=== PATIENT | female | born 1970 | race Caucasian/White ===

== ENCOUNTER 2017-12-14 18:51 | Emergency (ER) | payer BC, OTHER ==
--- NOTE | 2017-12-14 21:14 | RAD REPORT ---
EXAM DESCRIPTION: US - Transvaginal Study Probe - 12/14/2017 9:01 pm CLINICAL HISTORY: Pelvic pain. COMPARISON: None. FINDINGS: The uterus is normal in size, shape and echotexture. The uterus measures 7.9 x 5.2 x 4.2 c m. The endometrial stripe measures 4 mm, normal. Both ovaries are normal in size, shape and echotexture. The right ovary measures 3.5 x 2.5 cm. The left ovary measures 2.1 x 2.1 cm.. No ovarian or parovarian lesions. No adnexal masses. Normal Doppler blood flow was demonstrated to both ovaries. IMPRESSION: Unremarkable study.
--- NOTE | 2017-12-14 21:40 | EDPHYS ---
Physician Documentation [facility] Name: Jasmina Gama Age: 47 yrs Sex: Female : 1970 Arrival Date: 12/14/2017 Time: 19:03 Bed 14 Private MD: Bj Cole HPI: 12/14 21:36 This 47 yrs old Female presents to ER via Ambulatory with complaints of kb Abdominal Pain. 21:36 The patient presents with abdominal pain in the lower abdomen. Onset: The kb symptoms/episode began/occurred today. The symptoms do not radiate. Associated signs and symptoms: Pertinent positives: vaginal bleeding, Pertinent negatives: nausea, vomiting, and diarrhea. The symptoms are described as achy. Modifying factors: The symptoms are alleviated by nothing, the symptoms are aggravated by nothing. Severity of pain: At its worst the pain was moderate in the emergency department the pain is unchanged. The patient has not experienced similar symptoms in the past. The patient has not recently seen a physician. Pt states she has a history of endometriosis and has been having pain with her menstrual cycles for the past 5 months. States it started up again today so she came to get seen because she is tired of self treating. . 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 - Social history:: Smoking status: Patient uses tobacco products, smokes one pack cigarettes per day. ROS: 21:35 Constitutional: Negative for fever, chills, and weight loss, Cardiovascular: Negative kb for chest pain, palpitations, and edema, Respiratory: Negative for shortness of breath, cough, wheezing, and pleuritic chest pain, Back: Negative for injury and pain, MS/Extremity: Negative for injury and deformity, Skin: Negative for injury, rash, and discoloration, Neuro: Negative for headache, weakness, numbness, tingling, and seizure. 21:35 Abdomen/GI: Positive for abdominal pain. Exam: 21:35 Constitutional: This is a well developed, well nourished patient who is awake, alert, kb and in no acute distress. Head/Face: Normocephalic, atraumatic. Chest/axilla: Normal chest wall appearance and motion. Nontender with no deformity. No lesions are appreciated. Cardiovascular: Regular rate and rhythm with a normal S1 and S2. No gallops, murmurs, or rubs. Normal PMI, no JVD. No pulse deficits. Respiratory: Lungs have equal breath sounds bilaterally, clear to auscultation and percussion. No rales, rhonchi or wheezes noted. No increased work of breathing, no retractions or nasal flaring. Abdomen/GI: Soft, non-tender, with normal bowel sounds. No distension or tympany. No guarding or rebound. No evidence of tenderness throughout. Skin: Warm, dry with normal turgor. Normal color with no rashes, no lesions, and no evidence of cellulitis. MS/ Extremity: Pulses equal, no cyanosis. Neurovascular intact. Full, normal range of motion. Neuro: Awake and alert, GCS 15, oriented to person, place, time, and situation. Cranial nerves II-XII grossly intact. Motor strength 5/5 in all extremities. Sensory grossly intact. Cerebellar exam normal. Normal gait. Vital Signs: 19:09 BP 134 / 84; Pulse 100; Resp 17; Temp 98.8; Pulse Ox 98% on R/A; Weight 58.06 kg; aj Height 5 ft. 2 in. (157.48 cm); Pain 6/10; 21:00 BP 112 / 70; Pulse 69; Resp 17; Temp 98(O); Pulse Ox 100% on R/A; bs1 21:38 BP 101 / 67; Pulse 63; Pulse Ox 98% on R/A; bs1 19:09 Body Mass Index 23.41 (58.06 kg, 157.48 cm) aj MDM: 20:01 Patient medically screened. kb 21:36 Data reviewed: vital signs, nurses notes. Data interpreted: Pulse oximetry: on room air kb is 98 %. Interpretation: normal. Counseling: I had a detailed discussion with the patient and/or guardian regarding: the historical points, exam findings, and any diagnostic results supporting the discharge/admit diagnosis, lab results, radiology results, the need for outpatient follow up, an OB/Gyne specialist, to return to the emergency department if symptoms worsen or persist or if there are any questions or concerns that arise at home. 21:38 ED course: Educated on need for follow up with TELECOMMUNICATIONS PROFESSIONAL. Verbal understanding received. . kb 21:47 ED course: Pt asked about UTI symptoms. Pt denies any urinary symptoms. . kb 12/14 21:20 Order name: Urine Microscopic Only; Complete Time: 22:01 kb 12/14 21:42 Order name: Urine Dipstick--Ancillary (enter results); Complete Time: 21:47 em1 12/14 20:06 Order name: Urine Dipstick-Ancillary (obtain specimen); Complete Time: 21:34 kb 12/14 20:12 Order name: US Transvaginal Study (Probe); Complete Time: 21:15 kb 12/14 21:42 Order name: Urine --Ancillary (enter results); Complete Time: 21:47 em1 12/14 22:02 Order name: Urine Culture EDAZ 12/14 20:12 Order name: Urine Test (obtain specimen); Complete Time: 21:28 kb Administered Medications: No medications were administered Disposition: 12/15 06:42 Co-signature as Attending Physician, Bj Nickerson MD I agree with the assessment and eduar plan of care. Disposition: 12/14/17 21:39 Discharged to Home. Impression: Dysmenorrhea, unspecified. - Condition is Stable. - Discharge Instructions: Dysmenorrhea, [id number]. - Medication Reconciliation Form, Thank You Letter, Antibiotic Education, Prescription Opioid Use form. - Follow up: Emergency Department; When: As needed; Reason: Worsening of condition. Follow up: Private Physician; When: 2 - 3 days; Reason: Recheck today's complaints, Continuance of care, Re-evaluation by your physician. Signatures: Dispatcher [employer] [facility] Cynthia Lowery, ELECTRONIC COMMUNICATIONS TECHNICIAN-C ELECTRONIC COMMUNICATIONS TECHNICIAN-Araceli Mcdonough RN RN aj Anderson, Corey, MD MD cha Ortiz, Alex RN RN ao Corrections: (The following items were deleted from the chart) 12/14 22:27 21:39 12/14/2017 21:39 Discharged to Home. Impression: Dysmenorrhea, unspecified. ao Condition is Stable. Forms are Medication Reconciliation Form, Thank You Letter, Antibiotic Education, Prescription Opioid Use. Follow up: Emergency Department; When: As needed; Reason: Worsening of condition. Follow up: Private Physician; When: 2 - 3 days; Reason: Recheck today's complaints, Continuance of care, Re-evaluation by your physician. kb
--- NOTE | 2017-12-14 21:40 | ER ---
Nurse's Notes [facility] Name: Jasmina Gama Age: 47 yrs Sex: Female : 1970 Arrival Date: 12/14/2017 Time: 19:03 Bed 14 Private MD: Diagnosis: Dysmenorrhea, unspecified Presentation: 12/14 19:08 Presenting complaint: Patient states: Reports lower abdominal pain and lower back pain aj with periods for 5 months. HX of endometriosis. Transition of care: patient was not received from another setting of care. Onset of symptoms was May 2017. Initial Sepsis Screen: Does the patient meet any 2 criteria? No. Patient's initial sepsis screen is negative. Does the patient have a suspected source of infection? No. Patient's initial sepsis screen is negative. Care prior to arrival: None. 19:08 Method Of Arrival: Ambulatory aj 19:08 Acuity: DALIA 3 aj Triage Assessment: 19:09 General: Appears in no apparent distress. comfortable, Behavior is calm, cooperative, aj appropriate for age. Pain: Complains of pain in buttocks and pelvis Pain currently is 6 out of 10 on a pain scale. at worst was 10 out of 10 on a pain scale. Neuro: Level of Consciousness is awake, alert, obeys commands, Oriented to person, place, time, situation, Appropriate for age. Respiratory: Airway is patent Respiratory effort is even, unlabored, Respiratory pattern is regular, symmetrical. GI: Abdomen is flat, non-distended. : Reports pain lower quadrant(s) in lower back. Derm: Skin is intact, is healthy with good turgor, Skin is pink, warm \T\ dry. normal. 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 - Social history:: Smoking status: Patient uses tobacco products, smokes one pack cigarettes per day. Screenin:36 Abuse screen: Denies threats or abuse. Denies injuries from another. Nutritional bs1 screening: No deficits noted. Tuberculosis screening: No symptoms or risk factors identified. Fall Risk None identified. Assessment: 21:00 General: Appears in no apparent distress. uncomfortable, Behavior is calm, cooperative, bs1 appropriate for age. Pain: Complains of pain in pelvis, right lower quad Pain currently is 7 out of 10 on a pain scale. Neuro: Level of Consciousness is awake, alert, obeys commands, Oriented to person, place, time, situation, Appropriate for age Curriculum And Assessment Director are equal bilaterally Moves all extremities. Neuro: Denies blurred vision dizziness, numbness headache. Cardiovascular: Denies chest pain, lightheadedness, palpitations, shortness of breath, Heart tones S1 S2 present Capillary refill < 3 seconds Patient's skin is warm and dry. Respiratory: Airway is patent Trachea midline Respiratory effort is even, unlabored, Respiratory pattern is regular, symmetrical, Breath sounds are clear. Respiratory: GI: Abdomen is flat, Bowel sounds present X 4 quads. Abdomen is tender to palpation in right lower quadrant and pelvis Reports lower abdominal pain, nausea, Patient currently denies bloody stool, rectal bleeding. : Reports urinary frequency, vaginal bleeding that is light flow, Denies burning with urination. EENT: No deficits noted. No signs and/or symptoms were reported regarding the EENT system. Derm: Skin is intact, Skin is pink, warm \T\ dry. Musculoskeletal: Circulation, motion, and sensation intact. Capillary refill < 3 seconds, Range of motion: intact in all extremities. 21:37 Reassessment: Patient appears in no apparent distress at this time. Patient and/or bs1 family updated on plan of care and expected duration. Pain level reassessed. Patient is alert, oriented x 3, equal unlabored respirations, skin warm/dry/pink. Vital Signs: 19:09 BP 134 / 84; Pulse 100; Resp 17; Temp 98.8; Pulse Ox 98% on R/A; Weight 58.06 kg; Height 5 ft. 2 in. (157.48 cm); Pain 6/10; 21:00 BP 112 / 70; Pulse 69; Resp 17; Temp 98(O); Pulse Ox 100% on R/A; bs1 21:38 BP 101 / 67; Pulse 63; Pulse Ox 98% on R/A; bs1 19:09 Body Mass Index 23.41 (58.06 kg, 157.48 cm) ED Course: 19:03 Patient arrived in ED. 19:09 Triage completed. aj 19:09 Arm band placed on left wrist. Patient placed in waiting room, Patient notified of wait aj time. 19:10 Cyn[facility] Lower[facility]-C [facility]. kb 19:10 Bj Nickerson MD is Attending Physician. kb 20:49 Patricia Carver, RN is Primary Nurse. bs1 21:00 Patient has correct armband on for positive identification. Bed in low position. Call bs1 light in reach. Side rails up X 1. Pulse ox on. NIBP on. 21:01 Ultrasound completed. Patient tolerated well. cy 21:01 US Transvaginal Study (Probe) In Process Unspecified. EDMS 21:36 No provider procedures requiring assistance completed. bs1 22:27 Patient did not have IV access during this emergency room visit. ao Administered Medications: No medications were administered Outcome: 21:39 Discharge ordered by MD. kb 22:26 Discharged to home ambulatory. ao 22:26 Condition: stable 22:26 Discharge instructions given to patient, Instructed on discharge instructions, follow up and referral plans. Demonstrated understanding of instructions, follow-up care, medications. 22:27 Patient left the ED. ao Addendum: 12/17/2017 18:40 Addendum: Culture Results: Positive urine culture. Patient was not prescribed i w antibiotics at discharge. Report given to RUCHI for further evaluation and then to nutrition specialist for follow up with patient. Phone call Attempt #1 pt did not answer, unable to leave voicemail. Signatures: Dispatcher [employer] [facility] Cynthia Lowery FNP-C FNP-Ckb Hammond, Christina, RN Araceli Bernardo ch, RN RN aj Williams, Irene, Odilon Galicia RN RN Patricia Marie, RN RN bs1 Yifan Kendrick cy
[2017-12-14 21:45] LABS: Urine Blood NEGATIVE (NEG); Urine Glucose NEGATIVE (NEG); Urine Protein 1+ (NEG)
[2017-12-14 22:00] LABS: Urine Bacteria LOADED /HPF (<20); Urine Culture Reflex Order REFLEXED; Urine RBC <5 /HPF (NONE SEEN)
== END 2017-12-14 22:27 | disposition home or self-care (01) ==
LOC: ER 18:51
DX: N94.6 Dysmenorrhea, unspecified (principal)
CPT/HCPCS: 76830; 81003; 81015; 81025; 87077; 87086; 87088; 87186; 99283

== ENCOUNTER 2019-06-17 04:29 | Emergency (ER) | payer BC ==
[2019-06-17 05:25] LABS: Urine Blood TRACE (NEG); Urine Glucose NEGATIVE (NEG); Urine Protein TRACE (NEG); Urine Specific Gravity 1.025 (1.005-1.030); Urine pH 5.5 (5.0-7.0)
[2019-06-17] MEDS ORDERED: CEFTRIAXONE/SWI 1gm 1 GM/10 ML SYR ONE (05:47)
[2019-06-17] MEDS ORDERED: dexAMETHasone 10 MG/ML VIAL ONE (05:47)
[2019-06-17] MEDS ORDERED: NA CHLORIDE 0.9% 1,000 ML ONE (05:47)
[2019-06-17] MEDS ORDERED: AZITHROMYCIN 250 MG TAB ONE (05:47)
[2019-06-17] MEDS ORDERED: IPRATROPIUM BROM 0.5MG/2.5ML ONE (05:47)
[2019-06-17] MEDS ORDERED: ALBUTEROL 2.5 MG/3 ML NEB SOL ONE (05:47)
[2019-06-17 06:05] LABS: Basophils % 0.5 % (0-1.3); Hematocrit 39.1 % (36.0-45.0); Lymphocytes % 9.9 % (15.3-44.8); MPV 8.2 fL (7.6-11.3); RBC Red Blood Cell Count 4.23 M/uL (3.86-4.86)
[2019-06-17 06:18] LABS: Albumin 3.4 g/dL (3.4-5.0); Bilirubin Total 0.3 mg/dL (0.2-1.0); Potassium 3.5 mmol/L (3.5-5.1); Protein, Total 7.7 g/dL (6.4-8.2)
[2019-06-17] MEDS ORDERED: predniSONE 20 MG TAB ONE (06:19)
--- NOTE | 2019-06-17 06:52 | ER ---
Nurse's Notes [facility] Name: Jasmina Gama Age: 48 yrs Sex: Female : 1970 Arrival Date: 06/17/2019 Time: 04:31 Bed 13 Private MD: Diagnosis: Dyspnea;Chronic obstructive pulmonary disease with (acute) exacerbation;Tobacco abuse counseling;Tobacco use;Pneumonia due to other specified bacteria Presentation: 06/17 04:43 Presenting complaint: Patient states: Pt states she quit smoking 1 week ago, developed wh cough now having shortness of breath that started a few days ago. Transition of care: patient was not received from another setting of care. Onset of symptoms was June 17, 2019. Risk Assessment: Do you want to hurt yourself or someone else? Patient reports no desire to harm self or others. Initial Sepsis Screen: Does the patient meet any 2 criteria? HR > 90 bpm. Yes Does the patient have a suspected source of infection? No. Patient's initial sepsis screen is negative. Care prior to arrival: None. 04:43 Method Of Arrival: Ambulatory 04:43 Acuity: DALIA 3 04:43 Acuity: DALIA 3 Triage Assessment: 04:48 Respiratory: Reports shortness of breath Onset: The symptoms/episode began/occurred wh gradually, the patient has mild shortness of breath. 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 - Social history:: Smoking status: Patient/guardian denies using tobacco. - Ebola Screening: : Patient negative for fever greater than or equal to 101.5 degrees Fahrenheit, and additional compatible Ebola Virus Disease symptoms Patient denies exposure to infectious person. - Family history:: pertinent for. Screenin:45 Abuse screen: Denies threats or abuse. Denies injuries from another. Nutritional screening: No deficits noted. Tuberculosis screening: No symptoms or risk factors identified. Fall Risk None identified. Assessment: 04:46 General: Appears in no apparent distress. Behavior is calm, cooperative, appropriate for age. Pain: Denies pain. Neuro: Level of Consciousness is awake, alert, obeys commands, Oriented to person, place, time, situation, Appropriate for age. Cardiovascular: Heart tones S1 S2 Rhythm is regular. Respiratory: Airway is patent Respiratory effort is even, unlabored, Respiratory pattern is regular, symmetrical, Breath sounds with wheezes bilaterally. GI: Abdomen is flat, non-distended. : No signs and/or symptoms were reported regarding the genitourinary system. EENT: No signs and/or symptoms were reported regarding the EENT system. Derm: Skin is intact, is healthy with good turgor, Skin is pink, warm \T\ dry. normal. Musculoskeletal: Circulation, motion, and sensation intact. 05:45 Reassessment: Patient appears in no apparent distress at this time. No changes from previously documented assessment. Patient and/or family updated on plan of care and expected duration. Pain level reassessed. Patient is alert, oriented x 3, equal unlabored respirations, skin warm/dry/pink. 07:14 Reassessment: Patient appears in no apparent distress at this time. No changes from previously documented assessment. Patient and/or family updated on plan of care and expected duration. Pain level reassessed. Patient is alert, oriented x 3, equal unlabored respirations, skin warm/dry/pink. Patient denies pain at this time. Patient states feeling better. Patient states symptoms have improved. Vital Signs: 04:47 BP 118 / 77; Pulse 115; Resp 18; Temp 99.1; Pulse Ox 95% ; Weight 55.79 kg; Height 5 ft. 2 in. (157.48 cm); 05:30 BP 102 / 76; Pulse 115; Resp 18; Temp 98.8; Pulse Ox 95% ; wh 05:30 BP 115 / 76; Pulse 108; Resp 18; Pulse Ox 96% on R/A; wh 04:47 Body Mass Index 22.50 (55.79 kg, 157.48 cm) ED Course: 04:31 Patient arrived in ED. ds1 04:35 Mandeep Galdamez is Primary Nurse. wh 04:38 Bj Nickerson MD is Attending Physician. eduar 04:45 Triage completed. wh 04:47 Arm band placed on right wrist. wh 04:48 Patient has correct armband on for positive identification. Bed in low position. Call light in reach. Side rails up X 1. Pulse ox on. NIBP on. 05:15 Inserted saline lock: 22 gauge in right antecubital area, using aseptic technique. Blood collected. 06:10 CXR XRAY In Process Unspecified. EDIL 07:16 No provider procedures requiring assistance completed. IV discontinued, intact, wh bleeding controlled, No redness/swelling at site. Administered Medications: 06:10 Drug: Decadron - Dexamethasone 10 mg Route: IVP; Site: right antecubital; 07:13 Follow up: Response: No adverse reaction 06:11 Drug: Rocephin 1 grams Route: IV; Rate: 125 per protocol; Site: right antecubital; 07:13 Follow up: Response: No adverse reaction; IV Status: Completed infusion 06:13 Drug: NS 0.9% 1000 ml Route: IV; Rate: 1 bolus; Site: right antecubital; 07:13 Follow up: Response: No adverse reaction; IV Status: Completed infusion 06:15 Drug: Albuterol - atroVENT (3:1) (2.5 mg - 0.5 mg) 3 ml Route: Nebulizer; 07:13 Follow up: Response: No adverse reaction; Wheezing diminished 06:16 Drug: Zithromax 500 mg Route: PO; 07:13 Follow up: Response: No adverse reaction 06:19 Drug: predniSONE 40 mg Route: PO; 07:12 Follow up: Response: No adverse reaction Outcome: 06:51 Discharge ordered by MD. witt 07:16 Discharged to home ambulatory. 07:16 Condition: stable 07:16 Discharge instructions given to patient, Instructed on discharge instructions, follow up and referral plans. medication usage, POC COPD, SOB and Bronchitis Demonstrated understanding of instructions, follow-up care, medications, POC Prescriptions given X 4. 07:17 Patient left the ED. Signatures: Dispatcher [employer] Bj Martins MD MD cha Sanford, Demi ds1 Mandeep Galdamez Corrections: (The following items were deleted from the chart) 07:14 05:30 Reassessment: Patient appears in no apparent distress at this time. No changes wh from previously documented assessment. Patient and/or family updated on plan of care and expected duration. Pain level reassessed. Patient is alert, oriented x 3, equal unlabored respirations, skin warm/dry/pink. wh
--- NOTE | 2019-06-17 06:53 | EDPHYS ---
Physician Documentation [facility] Name: Jasmina Gama Age: 48 yrs Sex: Female : 1970 Arrival Date: 06/17/2019 Time: 04:31 Bed 13 Private MD: DAWIT Physician Bj Nickerson HPI: 06/17 05:43 This 48 yrs old Female presents to ER via Ambulatory with complaints of eduar Cough, Shortness Of Breath. 05:43 The patient or guardian reports airway noise, cough, difficulty breathing. Onset: The eduar symptoms/episode began/occurred 2 day(s) ago. Severity of symptoms: At their worst the symptoms were mild, in the emergency department the symptoms are unchanged. Modifying factors: The symptoms are alleviated by cool environment, the symptoms are aggravated by nothing. Associated signs and symptoms: The patient has no apparent associated signs or symptoms. The patient has not experienced similar symptoms in the past. 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 - Social history:: Smoking status: Patient/guardian denies using tobacco. - Ebola Screening: : Patient negative for fever greater than or equal to 101.5 degrees Fahrenheit, and additional compatible Ebola Virus Disease symptoms Patient denies exposure to infectious person. - Family history:: pertinent for. ROS: 05:43 Constitutional: Negative for fever, chills, and weight loss, Eyes: Negative for injury, eduar pain, redness, and discharge, ENT: Negative for injury, pain, and discharge, Neck: Negative for injury, pain, and swelling, Cardiovascular: Negative for chest pain, palpitations, and edema, Abdomen/GI: Negative for abdominal pain, nausea, vomiting, diarrhea, and constipation, Back: Negative for injury and pain, : Negative for injury, bleeding, discharge, and swelling, MS/Extremity: Negative for injury and deformity, Skin: Negative for injury, rash, and discoloration, Neuro: Negative for headache, weakness, numbness, tingling, and seizure. 05:43 Respiratory: Positive for cough, shortness of breath, wheezing, inspiratory, expiratory. Exam: 05:43 Constitutional: This is a well developed, well nourished patient who is awake, alert, eduar and in no acute distress. Head/Face: Normocephalic, atraumatic. Eyes: Pupils equal round and reactive to light, extra-ocular motions intact. Lids and lashes normal. Conjunctiva and sclera are non-icteric and not injected. Cornea within normal limits. Periorbital areas with no swelling, redness, or edema. ENT: Nares patent. No nasal discharge, no septal abnormalities noted. Tympanic membranes are normal and external auditory canals are clear. Oropharynx with no redness, swelling, or masses, exudates, or evidence of obstruction, uvula midline. Mucous membranes moist. Neck: Trachea midline, no thyromegaly or masses palpated, and no cervical lymphadenopathy. Supple, full range of motion without nuchal rigidity, or vertebral point tenderness. No Meningismus. Chest/axilla: Normal chest wall appearance and motion. Nontender with no deformity. No lesions are appreciated. Cardiovascular: Regular rate and rhythm with a normal S1 and S2. No gallops, murmurs, or rubs. Normal PMI, no JVD. No pulse deficits. Abdomen/GI: Soft, non-tender, with normal bowel sounds. No distension or tympany. No guarding or rebound. No evidence of tenderness throughout. Back: No spinal tenderness. No costovertebral tenderness. Full range of motion. Female : Normal external genitalia. Skin: Warm, dry with normal turgor. Normal color with no rashes, no lesions, and no evidence of cellulitis. MS/ Extremity: Pulses equal, no cyanosis. Neurovascular intact. Full, normal range of motion. Neuro: Awake and alert, GCS 15, oriented to person, place, time, and situation. Cranial nerves II-XII grossly intact. Motor strength 5/5 in all extremities. Sensory grossly intact. Cerebellar exam normal. Normal gait. Psych: Awake, alert, with orientation to person, place and time. Behavior, mood, and affect are within normal limits. 05:43 Respiratory: mild respiratory distress is noted, Respirations: labored breathing, that is mild, that is moderate, Breath sounds: bronchial sounds, that are mild, decreased breath sounds, that are mild, rhonchi, that are mild, wheezing: inspiratory expiratory Vital Signs: 04:47 BP 118 / 77; Pulse 115; Resp 18; Temp 99.1; Pulse Ox 95% ; Weight 55.79 kg; Height 5 wh ft. 2 in. (157.48 cm); 05:30 BP 102 / 76; Pulse 115; Resp 18; Temp 98.8; Pulse Ox 95% ; wh 05:30 BP 115 / 76; Pulse 108; Resp 18; Pulse Ox 96% on R/A; 04:47 Body Mass Index 22.50 (55.79 kg, 157.48 cm) MDM: 04:38 Patient medically screened. [facility] 05:44 Data reviewed: vital signs, nurses notes, lab test result(s), EKG, radiologic studies, [facility] plain films. 06/17 05:20 Order name: Urine Dipstick--Ancillary (enter results); Complete Time: 05:48 06/17 05:42 Order name: CBC with Diff; Complete Time: 06:50 [facility] 06/17 05:03 Order name: CXR XRAY 06/17 05:42 Order name: Comprehensive Metabolic Panel; Complete Time: 06:50 [facility] 06/17 05:42 Order name: Influenza Screen (a \T\ B); Complete Time: 06:50 [facility] Administered Medications: 06:10 Drug: Decadron - Dexamethasone 10 mg Route: IVP; Site: right antecubital; 07:13 Follow up: Response: No adverse reaction 06:11 Drug: Rocephin 1 grams Route: IV; Rate: 125 per protocol; Site: right antecubital; 07:13 Follow up: Response: No adverse reaction; IV Status: Completed infusion 06:13 Drug: NS 0.9% 1000 ml Route: IV; Rate: 1 bolus; Site: right antecubital; 07:13 Follow up: Response: No adverse reaction; IV Status: Completed infusion 06:15 Drug: Albuterol - atroVENT (3:1) (2.5 mg - 0.5 mg) 3 ml Route: Nebulizer; 07:13 Follow up: Response: No adverse reaction; Wheezing diminished 06:16 Drug: Zithromax 500 mg Route: PO; 07:13 Follow up: Response: No adverse reaction 06:19 Drug: predniSONE 40 mg Route: PO; 07:12 Follow up: Response: No adverse reaction Disposition: 06/17/19 06:51 Discharged to Home. Impression: Dyspnea, Chronic obstructive pulmonary disease with (acute) exacerbation, Tobacco abuse counseling, Tobacco use, Pneumonia due to other specified bacteria. - Condition is Stable. - Discharge Instructions: Chronic Bronchitis, Chronic Obstructive Pulmonary Disease, Steps to Quit Smoking, Smoking Hazards, Shortness of Breath, [id number], Chronic Obstructive Pulmonary Disease Exacerbation, Chronic Obstructive Pulmonary Disease, [id number]. - Prescriptions for Albuterol Sulfate 2.5 mg /3 mL (0.083 %) Inhalation Solution for Nebulization - inhale 1 unit by NEBULIZATION route every 8 hours As needed; 1 box. Zithromax Z- Blaine 250 mg Oral Tablet - take 1 tablet by ORAL route as directed for 5 days Day 1 - take two (2) tablets one time. Day 2, 3, 4 , 5 take one (1) tablet once daily.; 6 tablet. Prednisone 20 mg Oral Tablet - take 2 tablet by ORAL route once daily for 5 days; 10 tablet. Albuterol Sulfate 90 mcg/actuation - inhale 1-2 puff by INHALATION route every 4-6 hours; 1 Inhaler. - Medication Reconciliation Form, Thank You Letter, Antibiotic Education, Prescription Opioid Use, Work release form form. - Follow up: Private Physician; When: 2 - 3 days; Reason: Recheck today's complaints, Continuance of care, Re-evaluation by your physician. - Problem is new. - Symptoms have improved. Signatures: Dispatcher [employer] EDCA Bj Nickerson MD MD cha Martinez, Eric em1 Mandeep Galdamez Corrections: (The following items were deleted from the chart) 07:00 07:00 Urine Dipstick-Ancillary ordered. em1 em1 07:17 06:51 06/17/2019 06:51 Discharged to Home. Impression: Dyspnea; Chronic obstructive wh pulmonary disease with (acute) exacerbation; Tobacco abuse counseling; Tobacco use; Pneumonia due to other specified bacteria. Condition is Stable. Discharge Instructions: Chronic Bronchitis, Chronic Obstructive Pulmonary Disease, Steps to Quit Smoking, Smoking Hazards, Shortness of Breath, [id number], Chronic Obstructive Pulmonary Disease Exacerbation, Chronic Obstructive Pulmonary Disease, [id number]. Prescriptions for Albuterol Sulfate 2.5 mg /3 mL (0.083 %) Inhalation Solution for Nebulization - inhale 1 unit by NEBULIZATION route every 8 hours As needed; 1 box, Zithromax Z-Blaine 250 mg Oral Tablet - take 1 tablet by ORAL route as directed for 5 days Day 1 - take two (2) tablets one time. Day 2, 3, 4 , 5 take one (1) tablet once daily.; 6 tablet, Prednisone 20 mg Oral Tablet - take 2 tablet by ORAL route once daily for 5 days; 10 tablet, Albuterol Sulfate 90 mcg/actuation - inhale 1-2 puff by INHALATION route every 4-6 hours; 1 Inhaler. and Forms are Medication Reconciliation Form, Thank You Letter, Antibiotic Education, Prescription Opioid Use. Follow up: Private Physician; When: 2 - 3 days; Reason: Recheck today's complaints, Continuance of care, Re-evaluation by your physician. Problem is new. Symptoms have improved. eduar
[2019-06-17 07:25] VITALS: BP 115/76; TEMP 98.8; O2SAT 96
--- NOTE | 2019-06-17 12:14 | RAD REPORT ---
EXAM DESCRIPTION: Jazz Single View06/17/2019 6:10 am CLINICAL HISTORY: Chest pain COMPARISON: none FINDINGS: Right basilar opacities. Additional bilateral reticulonodular opacities. Upper lobes appea r clear. Heart is normal size IMPRESSION: These findings may indicate a bilateral atypical pneumonia
== END 2019-06-17 07:17 | disposition home or self-care (01) ==
LOC: ER 04:29
DX: J44.1 Chronic obstructive pulmonary disease with (acute) exacerbation (principal); J15.8 Pneumonia due to other specified bacteria; Z72.0 Tobacco use; Z71.6 Tobacco abuse counseling; R06.00 Dyspnea, unspecified
CPT/HCPCS: 96365; 85025; 36415; 81003; 80053; 87804 ×2; 71045; 94640; 96375; 99284; J1100; J0696; J7030; J7512